=== PATIENT | male | born 2000 | race Caucasian/White ===

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

== ENCOUNTER 2023-01-02 14:12 | Emergency (ER) | payer OTHER ==
[~2023-01-02] VITALS: Ht 182.9 cm; Wt 86.2 kg
[2023-01-02 15:30] LABS: HEMOGLOBIN 13.9 g/dL (13-16.00); MEAN CELL VOLUME 86.8 fL (80.0-100.00); MEAN CORPUSCULAR HEMOGLOBIN 29.4 pg (27.00-32.0); MEAN CORPUSCULAR HGB CONC 33.8 g/dl (32.0-36.0); PLATELET COUNT 254 K/uL (150-450); RED BLOOD COUNT 4.72 M/uL (4.00-6.00); RED CELL DISTRIBUTION WIDTH 12.8 % (11.5-14.5)
== END 2023-01-02 16:25 | disposition home or self-care (01) ==
LOC: EMR PED 14:12
PROVIDERS: Pediatrics
DX: B34.9 Viral infection, unspecified (principal); D69.6 Thrombocytopenia, unspecified; Z91.030 Bee allergy status